=== PATIENT | female | born 1960 | race Caucasian/White ===

== ENCOUNTER 2022-08-29 10:40 | Outpatient (CLI) | payer BC, SELFPAY ==
--- NOTE | 2022-08-29 11:08 | XR_ITS ---
WS: [id number] EXAMINATION: XR shoulder LT min 2V* [id number] REASON FOR EXAM: CHRONIC PAIN OF BOTH SHOULDERS COMPARISON: None available. ORDER DATE: 08/29/2022 11:08 AM TECHNIQUE: 2 views of the left shoulder were obtained. X-RAY FINDINGS: No fractures or dislocations. Normal motion of the shoulder with internal/external rotation. Prominent degenerative changes glenoid process with extensive subchondral cysts and sclerotic change. Changes are less prominent in the humeral head. The glenohumeral joint articular surfaces are not vi sible en face on the available projections. Acromioclavicular joint appears unremarkable. Limited visualization of the adjacent hemithorax is unremarkable. XR/XR shoulder LT min 2V* [id number] IMPRESSION: No fractures or dislocations Marked degenerative changes as noted..
--- NOTE | 2022-08-29 11:08 | XR_ITS ---
WS: [id number] EXAMINATION: XR shoulder RT min 2V* [id number] REASON FOR EXAM: CHRONIC PAIN OF BOTH SHOULDERS COMPARISON: None available. ORDER DATE: 08/29/2022 11:08 AM TECHNIQUE: 2 views of the right shoulder were obtained. X-RAY FINDINGS: No fractures or dislocations. Normal motion of the shoulder with internal/external rotation. There are prominent subchondral cystic changes with sclerotic change involving the glenoid process. A few subchondral cysts are seen in the humeral head.. Acromioclavicular joint appears unremarkable. Limited visualization of the adjacent hemithorax is unremarkable. XR/XR shoulder RT min 2V* [id number] IMPRESSION: Osteoarthritic changes with sclerosis and subchondral cysts primarily involving the glenoid process
== END 2022-08-29 10:41 | disposition home or self-care (01) ==
LOC: RAD 10:46
PROVIDERS: Visit Provider Nurse Practitioner Family
DX: M19.012 Primary osteoarthritis, left shoulder (principal); M19.011 Primary osteoarthritis, right shoulder
CPT/HCPCS: 73030